=== PATIENT | female | born 1955 | race Caucasian/White ===

== ENCOUNTER 2020-06-15 10:28 | Emergency (ER) | payer BC, SELFPAY ==
--- NOTE | ~2020-06-15 | XR_ITS ---
EXAMINATION: XR chest 2V DATE: 06/15/2020 12:40 INDICATION: Chest pain. TECHNIQUE: Frontal and lateral views of the chest were obtained. COMPARISON: Chest 2 views 04/03/2018 FINDINGS: There is mild scarring at the lung apices. No pleural effusion or pneumothorax. The heart s ize is normal. There are bilateral breast implants. Surgical clips in the right upper quadrant are attila bush from cholecystectomy. IMPRESSION: 1. Mild scarring at the lung apices. Reviewed, dictated and finalized at location A.
--- NOTE | 2020-06-15 10:29 | ECG_ITS ---
Measurements Intervals [place] Rate: 69 P: 44 FL: 147 QRS: 29 QRSD: 85 T: 30 QT: 384 QTc: 414 Interpretive Statements SINUS RHYTHM WITH SINUS ARRHYTHMIA BORDERLINE ST ABNORMALITY- ANTEROLATERAL LEADS BASELINE ARTIFACT- I, III BORDERLINE ECG Electronically Signed On 06-16-2020 7:44:00 CDT by Scot Kern D.O.
[2020-06-15 10:43] VITALS: BP 135/67; PULSE 70; RESP 18; TEMP 36.2; O2SAT 100
[2020-06-15 10:59] LABS: Basophils Percent Auto 0.9 % (0.2-1.2); Eosinophils Absolute Auto 0.1 K/mm3 (0-0.3); Eosinophils Percent Auto 2.2 % (0-4.4); Hematocrit 38.8 % (37.0-47.0); Hemoglobin 13.2 g/dL (12.0-15.0); Immature Granulocyte Absolute 0.02 K/mm3 (0.00-0.031); Immature Granulocyte Percent A 0.4 % (0-0.5); Lymphocytes Absolute Auto 1.29 K/mm3 (0.9-3.2); Lymphocytes Percent Auto 28.4 % (18.3-44.2); Mean Corpuscular Hemoglobin 31.4 pg (26-34); Mean Corpuscular Volume 92.4 fl (80-100); Mean Platelet Volume 9.7 fl (7.4-10.4); Monocytes Absolute Auto 0.2 K/mm3 (0.1-0.6); Monocytes Percent Auto 5.1 % (2.6-8.5); Neutrophils Absolute Auto 2.9 K/mm3 (1.3-6.7); Platelet Count Result 209 k/mm3 (150-375); Red Cell Distribution Width 12.9 % (11.5-14.5); White Blood Count 4.6 K/mm3 (4.5-10.0)
[2020-06-15 11:10] LABS: Anion Gap 7 mmol/L (8-16); Blood Urea Nitrogen 10 mg/dL (7-17); Calcium 9.4 mg/dL (8.4-10.2); Carbon Dioxide 27 mmol/L (22-30); Chloride 105 mmol/L (98-107); Estimated CRCL calculation 79 ml/min; Estimated Glomerular Filt Rate > 60; Glucose 162 mg/dL (65-105); Potassium 3.9 mmol/L (3.4-5.0); Sodium 139 mmol/L (137-145)
[2020-06-15 11:11] LABS: Partial Thromboplastin Time 22.6 SECONDS (22.3-36.8)
[2020-06-15 11:22] LABS: Troponin I < 0.012 ng/mL (0.000-0.034)
[2020-06-15 13:33] VITALS: BP 152/74; PULSE 82; RESP 20; O2SAT 100
--- NOTE | 2020-06-15 14:04 | ED.CHESTPAIN ---
HPI - Chest Pain General Chief Complaint: Chest Pain Stated Complaint: CP Time Seen by Provider: 06/15/20 13:39 Source: patient and family Mode of arrival: ambulatory Limitations: no limitations History of Present Illness HPI narrative: 65 years old white female presented a day with left chest pain started 30 minutes prior to arrival to the emergency room. Patient was in a standing position doing physical work suddenly developed sharp stabbing pain at the left chest lasted for about 5 minutes, get better with deep breath, denies anything makes it worse. Pain was 10 out of 10, currently 0 out of 10. Patient had similar symptoms roughly 3 years ago secondary to anxiety. Patient denies any fever, chills, nausea, vomiting, shortness of breath, back pain or abdominal. Patient been doing physical job for the last 3 years. Denies anything new today. Patient reports 1 of her friends is dying of cancer in the last few days and she is very sad about that. Currently patient denying any symptoms. Related Data Allergies Allergy/AdvReac Type Severity Reaction Status Date / Time No Known Allergies Allergy Verified 06/15/20 13:30 Review of Systems Review of Systems: Narrative: CONSTITUTIONAL: Denies fever, chills, or sweats. EYES: Denies visual changes, redness, or discharge. ENT: Denies rhinorrhea, congestion, sore throat, or otalgia. CARDIOVASCULAR: Denies chest pain, palpitations, or edema. RESPIRATORY: Denies cough or dyspnea. GASTROINTESTINAL: Denies abdominal pain, nausea, vomiting, or diarrhea. GENITOURINARY: Denies dysuria or hematuria. SKIN: Denies rash or itching. MUSCULOSKELETAL: Denies back pain, joint pain, or myalgia. NEUROLOGIC: Denies headache, numbness, or weakness. PSYCHIATRIC: Denies anxiety or depression. [facility] Past Medical History Medical History Anxiety BMI 28.0-28.9,adult Breast cancer screening Colon cancer screening Encounter for wellness examination GERD (gastroesophageal reflux disease) Hyperlipidemia Obstructive Sleep Apnea-Hypopnea Syndrome Osteoporosis screening Stiffness of left shoulder joint Type 2 diabetes mellitus Vitamin D deficiency Surgical History Surgical History History of cholecystectomy Family History Family History Sibling Diabetes mellitus Family history of cardiovascular disease Mother Diabetes mellitus Acute myocardial infarction Father Family history of lung cancer Social History Social History Smoking status: Never smoker Second hand tobacco smoke exposure: No Alcohol intake: current Substance use: never Substance use type: does not use Gender identity (if verbalized by the patient): Female Exam Narrative: Exam Narrative: General appearance: Well-developed, well-nourished Skin: Normal color Head: Normocephalic, nontraumatic Eyes: Clear conjunctiva ENT: Oropharynx normal, ears normal, nose normal Neck: Supple, nontender Chest and respiratory: Airway patent, no respiratory distress, no accessory muscle use, breast augmentation Heart: Regular rate/rhythm Abdomen: Soft, nontender, no organomegaly, quiet bowel sounds Vascular: Normal peripheral pulses, normal capillary refill. Musculoskeletal: Normal range of motion, nontender back Neurologic: Alert and oriented ?3, [employer] is normal as tested, no gross motor deficit Course Course Emergency Course: Stable Vital Signs Vital signs: Vital Signs Temperature 36.2 C L 06/15/20 10:43 Pulse Rate 70 06/15/20 10:43 Respirat
[2020-06-15 14:49] VITALS: BP 133/71; PULSE 80; RESP 16; O2SAT 100
[2020-06-15 15:44] VITALS: BP 141/89; PULSE 80; RESP 16; O2SAT 97
[2020-06-15 16:25] LABS: Troponin I < 0.012 ng/mL (0.000-0.034)
[2020-06-15 17:17] VITALS: BP 141/89; PULSE 87; RESP 16; TEMP 36.8; O2SAT 99
[2020-06-15 17:45] LABS: D Dimer 0.27 ug/mL (<0.48)
== END 2020-06-15 17:20 | disposition home or self-care (01) ==
PROVIDERS: Emergency Medicine; Emergency Provider Emergency Medicine; PCP Family Medicine
DX: R07.9 Chest pain, unspecified (principal); K21.9 Gastro-esophageal reflux disease without esophagitis; E78.5 Hyperlipidemia, unspecified; G47.30 Sleep apnea, unspecified; E11.9 Type 2 diabetes mellitus without complications
CPT/HCPCS: 36415; 71046; 80048; 84484; 85025; 85380; 85610; 85730; 93005; 99284

== ENCOUNTER 2020-07-22 02:52 | Outpatient (CLI) | payer BC, SELFPAY ==
[2020-07-22 18:02] LABS: SARS-CoV-2 RNA PCR Negative
== END 2020-07-22 02:53 | disposition home or self-care (01) ==
LOC: ANHCOVIDDT 02:53
PROVIDERS: PCP Family Medicine; Visit Provider Internal Medicine Gastroenterology
DX: Z01.812 Encounter for preprocedural laboratory examination (principal); Z20.828 Contact with and (suspected) exposure to other viral communicable diseases
CPT/HCPCS: 87635; C9803; U0003

== ENCOUNTER 2020-07-25 01:43 | Day surgery (SDC) | payer BC, SELFPAY ==
[2020-07-19 13:08] VITALS: BMI 28.0
[2020-07-25 06:53] LABS: Glucose Point of Care 133 (65-105)
[2020-07-25] MEDS: LACTATED RINGERS 1,000 ML 150 ML IV CONT (06:57)
[2020-07-25 06:59] VITALS: BP 133/66; PULSE 86; RESP 14; TEMP 36.2; O2SAT 98; BMI 28.0
--- NOTE | 2020-07-25 07:16 | WPDANESEPPF ---
Anes - Initial Pre Proc Eval Procedure: Operation Date: 07/25/20 08:00 Proposed Procedures p Screening Colonoscopy - Thomas Sanchez MD Date/Time: 07/25/20 07:16 Surgeon: Thomas Sanchez MD Pre Op Diagnosis: Neoplasm Screening Patient Data Age: 65 Gender: F Height: 1.63 m Weight: 74 kg Last Vital Signs Temp 36.2 C L 07/25/20 06:59 Pulse 86 07/25/20 06:59 Resp 14 07/25/20 06:59 BP 133/66 07/25/20 06:59 Pulse Ox 98 07/25/20 06:59 Allergies Allergy/AdvReac Type Severity Reaction Status Date / Time No Known Allergies Allergy Verified 07/25/20 06:45 Home Medications Medication Instructions Recorded Confirmed Type sertraline 50 mg tablet 50 mg PO DAILY #90 tablet 10/12/19 07/19/20 Rx metformin 500 mg tablet,extended 1,000 mg PO QPM #180 tablet 01/04/20 07/19/20 Rx release 24 hr atorvastatin 20 mg tablet 20 mg PO DAILY #90 tablet 06/02/20 07/19/20 Rx glimepiride 2 mg tablet 2 mg PO QAM #30 tablet 06/02/20 07/19/20 Rx omeprazole 20 mg PO DAILY PRN 07/19/20 07/19/20 History vitamins A,C,O-hppv-jinqjz 2 tablet PO BID 07/19/20 07/19/20 History [PreserVision AREDS] Laboratory Tests 07/25/20 06:51 POC Capillary Glucose 133 mg/dl H mg/dl (65-105) Patient hx anesthesia problems: none Family hx anesthesia problems: none PMFSH Past Medical History Medical History (Updated 06/16/20 @ 00:00 by Background Daemon) Anxiety BMI 28.0-28.9,adult Breast cancer screening Colon cancer screening Encounter for wellness examination GERD (gastroesophageal reflux disease) Hyperlipidemia Obstructive Sleep Apnea-Hypopnea Syndrome Osteoporosis screening Stiffness of left shoulder joint Type 2 diabetes mellitus Vitamin D deficiency Surgical History Surgical History History of cholecystectomy Family History Family History Sibling Diabetes mellitus Family history of cardiovascular disease Mother Diabetes mellitus Acute myocardial infarction Father Family history of lung cancer Social History Social History Smoking status: Never smoker Second hand tobacco smoke exposure: No Alcohol intake: current Drinks per week: 0 Alcohol use details: MAY A COUPLE PER MONTH Substance use: never Substance use type: does not use Living arrangements: alone Gender identity (if verbalized by the patient): Female Spiritual care concerns: No Anes - Eval Final PreProcedure Day of Procedure 07/25/20 07:16 Patient weight: overweight Heart: regular rate and rhythm Lungs: clear to auscultation and normal air movement Airway: Mallampati scale class II Neurological: alert and oriented Last oral intake: >/= 8 hours ASA classification: III Emergent: no Anesthetic plan: proceed Anesthesia type and monitoring: general GIVS Informed Consent: The patient's anesthetic plan and its attendant risks and benefits were discussed with the patient/family/POA. Questions were solicited and answers provided to the satisfaction of the patient/family/POA.
--- NOTE | 2020-07-25 08:06 | WPDGICN ---
Assessment and Plan Assessment and plan (1) Encounter for screening colonoscopy: Code(s): Z12.11 - Encounter for screening for malignant neoplasm of colon Status: Acute Assessment and Plan: Patient appears to be at normal risk for colon polyps. Screening colonoscopy advised today. Further recommendations after endoscopy. GI Consult Note Consult date/time: 07/25/20 08:06 HPI: Claudette Mas is a 65 year old female seen in evaluation at the request of Dr. Lisa Cano. Patient presents for neoplasia screening. Patient's current weight appetite bowel movement are normal. She denies abdominal pain. She has had no blood in her stools. Family history is noncontributory. Review of Systems Review of Systems: All systems reviewed & are unremarkable except as noted in HPI and below PMFSH Past Medical History Medical History (Updated 07/25/20 @ 08:07 by Thomas Sanchez MD) Anxiety BMI 28.0-28.9,adult Breast cancer screening Colon cancer screening Encounter for wellness examination GERD (gastroesophageal reflux disease) Hyperlipidemia Obstructive Sleep Apnea-Hypopnea Syndrome Osteoporosis screening Stiffness of left shoulder joint Type 2 diabetes mellitus Vitamin D deficiency Surgical History Surgical History History of cholecystectomy Family History Family History Sibling Diabetes mellitus Family history of cardiovascular disease Mother Diabetes mellitus Acute myocardial infarction Father Family history of lung cancer Social History Social History Smoking status: Never smoker Second hand tobacco smoke exposure: No Alcohol intake: current Drinks per week: 0 Alcohol use details: MAY A COUPLE PER MONTH Substance use: never Substance use type: does not use Living arrangements: alone Gender identity (if verbalized by the patient): Female Spiritual care concerns: No Meds Home Medications and Allergies Home Medications Medication Instructions Recorded Confirmed Type sertraline 50 mg tablet 50 mg PO DAILY #90 tablet 10/12/19 07/19/20 Rx metformin 500 mg tablet,extended 1,000 mg PO QPM #180 tablet 01/04/20 07/19/20 Rx release 24 hr atorvastatin 20 mg tablet 20 mg PO DAILY #90 tablet 06/02/20 07/19/20 Rx glimepiride 2 mg tablet 2 mg PO QAM #30 tablet 06/02/20 07/19/20 Rx omeprazole 20 mg PO DAILY PRN 07/19/20 07/19/20 History vitamins A,C,A-iojv-xbmmbb 2 tablet PO BID 07/19/20 07/19/20 History [PreserVision AREDS] Allergies Allergy/AdvReac Type Severity Reaction Status Date / Time No Known Allergies Allergy Verified 07/25/20 06:45 Vital Signs Vital Signs - 24 hr 07/25/20 06:59 Temperature 97.2 F L Pulse Rate 86 Respiratory Rate 14 Blood Pressure 133/66 Pulse Oximetry 98 Exam Narrative: Exam Narrative: Physical exam reveals patient to be alert. Vital signs stable. HEENT exam unremarkable. Lungs are clear to auscultation and percussion. Heart is without murmur or extra sounds. Abdominal exam bowel sounds are present soft nontender with no hepatosplenomegaly. Digital external rectal exam is normal.
[2020-07-25 08:31] VITALS: BP 104/57; PULSE 78; RESP 17; O2SAT 96
[2020-07-25 08:41] VITALS: BP 118/61; PULSE 75; RESP 17; O2SAT 99
[2020-07-25 08:50] VITALS: BP 124/75; PULSE 82; RESP 23; O2SAT 100
== END 2020-07-25 08:58 | disposition home or self-care (01) ==
PROVIDERS: PCP Family Medicine; Visit Provider Internal Medicine Gastroenterology
PROC: 0DJD8ZZ Inspection of Lower Intestinal Tract, Via Natural or Artificial Opening Endoscopic (ICD-10-PCS; CPT 45378; principal; 2020-07-25 08:00)
DX: Z12.11 Encounter for screening for malignant neoplasm of colon (principal); K64.8 Other hemorrhoids; K57.30 Diverticulosis of large intestine without perforation or abscess without bleeding; K21.9 Gastro-esophageal reflux disease without esophagitis; E78.5 Hyperlipidemia, unspecified; G47.33 Obstructive sleep apnea (adult) (pediatric); E11.9 Type 2 diabetes mellitus without complications; E55.9 Vitamin D deficiency, unspecified; Z79.84 Long term (current) use of oral hypoglycemic drugs
CPT/HCPCS: 45378; J2704; J7120

== ENCOUNTER 2020-08-17 15:30 | Outpatient (RCR) | payer BC, SELFPAY ==
--- NOTE | 2020-07-13 14:37 | PTOPEVAL ---
Thank you for referring Claudette Mas to [facility].? The patient is scheduled to be seen for therapy? 2 x/week for 6 weeks. Please review, sign, date and return this plan of care OTTONIEL. I agree with and certify that the following plan of care is medically necessary. Referring Physician Date Attending Provider: Vladimir Pollack PA-C Referring Provider: DemiPT Outpatient Evaluation Start: 07/13/20 13:22 Freq: Status: Active Protocol: Document 07/13/20 13:25 CAP (Rec: 07/13/20 14:10 CAP [id number]) Therapy Assessment Status Assessment Status Assessment Status Evaluation Outpatient Past Medical History Past Medical History Source of Past Medical History Patient,Recalled from Previous Visit, Confirmed with Patient /Family Cardiovascular History Hx Hypercholesterolemia Yes Hx Hypertension Yes Respiratory History Hx Sleep Apnea Yes Gastrointestinal History Hx Cholecystectomy Yes Genitourinary History Hx Kidney Stones Yes Endocrine History Hx Diabetes Yes Psychosocial History Hx Anxiety Yes Evaluation Information Problem Diagnosis left shoulder pain Onset 1 yr Cause fall x 2 Subjective Information She did not have x-rays on her Query Text:As Reported By Patient/ left UE after the falls. She Family reports limitations with reaching behind her back, but not overhead. Increased pain with sleeping on left shoulder. She does not carry objects with Left UE. She denies any problem with work related task or IADL's at home. She denies problems with yard work. She does not perform fitness or walking program. Diagnostic Tests X-Rays For This Problem No Pain Assessment Timing of Pain Assessment Timing of Pain Assessment Assessment Pain Scale Pain Scale Used Numeric (1 - 10) Self Report Pain Assessment Left Shoulder(s) Reported Pain Level 0 Pain Description Aching Pain Frequency Chronic,Intermittent Lowest Pain Intensity 0 Greatest Pain Intensity 4 Pain Aggravating Factors Other Pain Aggravating Factors Other Pain Aggravating Factors reaching behind Pain Behaviors Relaxed Pain Score Pain Score 0: Self Report Interventio
--- NOTE | 2020-08-03 14:07 | PCPTNOTE ---
Patient did not show up for scheduled appointment this date; called and left voicemail for re-eval on August 10 @ 1:30pm.
--- NOTE | 2020-08-10 14:23 | PTOPEVAL ---
Thank you for referring Claudette Mas to [facility].? The patient is scheduled to be seen for therapy? 2 x/week for 3 weeks. Please review, sign, date and return this plan of care OTTONIEL. I agree with and certify that the following plan of care is medically necessary. Referring Physician Date Attending Provider: Vladimir Pollack PA-C Referring Provider: DemiPT Outpatient Evaluation Start: 07/13/20 13:22 Freq: Status: Active Protocol: Document 08/10/20 13:23 PAULA (Rec: 08/10/20 14:08 PAULA [email or web address]) Therapy Assessment Status Assessment Status Assessment Status Re-evaluation/Progress Note Outpatient Past Medical History Past Medical History Source of Past Medical History Patient,Recalled from Previous Visit, Confirmed with Patient /Family Neurological History Hx Neurological Disorders No Significant History Cardiovascular History Hx Hypercholesterolemia Yes Respiratory History Hx Sleep Apnea Yes: DOES NOT WEAR CPAP Gastrointestinal History Hx Cholecystectomy Yes: 2006 Genitourinary History Hx Kidney Stones Yes: X2 Musculoskeletal History Hx Spinal Surgery Yes: CERVICAL FUSION Hematological History Hx Hematological Disorders No Significant History Endocrine History Hx Diabetes Yes: TYPE II - ORAL MEDS HEENT History Hx HEENT Disorders No Significant History Integumentary History Hx Skin Disorders No Significant History Reproductive History Hx Post Menopausal Yes Psychosocial History Hx Anxiety Yes Pain History History of Any Previous or Ongoing No Significant History Instance of Pain Anesthesia History Hx Anesthesia Reactions No Significant History Other History Hx Implanted Device Yes: BREAST IMPLANTS Evaluation Information Problem Diagnosis left shoulder pain Onset 1 yr Cause fall x 2 Additional Evaluation Detail She did not have x-rays on her left UE after the falls. Subjective Information She is able to reach behind Query Text:As Reported By Patient/ her better, but still has pain Family if she performs the motion quickly. She cont to have pain with sleeping on left shoulder. She is able to carry objects with Left UE without limitations. She denies any problem with work related task or IADL's at home. She denies problems with ya
--- NOTE | 2020-08-31 08:02 | PCPTNOTE ---
Patient called & cancelled scheduled appointments from - due to getting COVID test for procedure then needed to self quarantine. Cancelled appointment - due to stent put in on Saturday with be here for re-eval on the .
--- NOTE | 2020-09-07 10:23 | PCPTNOTE ---
Patient called & cancelled scheduled appointment this date due to COVID testing. Did not reschedule her re-eval. Will hold chart open for 2 wks.
--- NOTE | 2020-09-21 12:42 | PCPTNOTE ---
Admitting Provider: Attending Provider: Vladimir Pollack PA-C Patient:Claudette Mas Date of :1955 Discharge Note Patient has not returned for any further treatments since 08/17/2020, therefore she will be discharged at this time. Patient?s initial visit was on 07/13/2020 13:15 and she had a total of 7 visits. The goals have been not met. Thank you for referring this patient to [facility]. Please review, sign, date and return this discharge summary OTTONIEL. I have been updated about the patient's current status and I agree with discharge from the above service at this time. Referring Physician Date
== END 2020-09-21 15:37 | disposition home or self-care (01) ==
LOC: ANHPT 15:30
PROVIDERS: PCP Family Medicine; Visit Provider Physician Assistant
DX: M25.612 Stiffness of left shoulder, not elsewhere classified (principal)
CPT/HCPCS: 97110; 97140; 97162

== ENCOUNTER 2020-08-26 02:07 | Outpatient (CLI) | payer BC, SELFPAY ==
[2020-08-26 19:10] LABS: SARS-CoV-2 RNA PCR Negative
== END 2020-08-26 02:08 | disposition home or self-care (01) ==
LOC: ANHCOVIDDT 02:07
PROVIDERS: PCP Family Medicine; Visit Provider Specialist
DX: Z01.812 Encounter for preprocedural laboratory examination (principal); Z20.828 Contact with and (suspected) exposure to other viral communicable diseases
CPT/HCPCS: 87635; C9803; U0003

== ENCOUNTER 2020-08-29 11:19 | Day surgery (SDC) | payer BC, SELFPAY ==
[2020-08-29] VITALS (13 sets, daily range): BP systolic 128–148; BP diastolic 63–88; PULSE 68–79; RESP 14–20; TEMP 36.6; O2SAT 95–100; BMI 28.3
[2020-08-29 12:18] LABS: Eosinophils Absolute Auto 0.1 K/mm3 (0-0.3); Eosinophils Percent Auto 2.9 % (0-4.4); Hematocrit 36.2 % (37.0-47.0); Hemoglobin 12.5 g/dL (12.0-15.0); Immature Granulocyte Absolute 0.03 K/mm3 (0.00-0.031); Immature Granulocyte Percent A 0.7 % (0-0.5); Lymphocytes Absolute Auto 1.35 K/mm3 (0.9-3.2); Lymphocytes Percent Auto 32.8 % (18.3-44.2); Mean Corpuscular HGB Conc 34.5 g/dl (32-36); Mean Corpuscular Hemoglobin 31.5 pg (26-34); Mean Corpuscular Volume 91.2 fl (80-100); Mean Platelet Volume 9.6 fl (7.4-10.4); Monocytes Absolute Auto 0.3 K/mm3 (0.1-0.6); Neutrophils Absolute Auto 2.3 K/mm3 (1.3-6.7); Neutrophils Percent Auto 55.6 % (45.5-73.1); Platelet Count Result 186 k/mm3 (150-375); Red Blood Count 3.97 M/mm3 (4.2-5.4); Red Cell Distribution Width 12.4 % (11.5-14.5); White Blood Count 4.1 K/mm3 (4.5-10.0)
[2020-08-29 12:35] LABS: Anion Gap 6 mmol/L (8-16); Blood Urea Nitrogen 9 mg/dL (7-17); Calcium 8.9 mg/dL (8.4-10.2); Carbon Dioxide 26 mmol/L (22-30); Chloride 107 mmol/L (98-107); Estimated Glomerular Filt Rate > 60; Glucose 139 mg/dL (65-105); Potassium 3.9 mmol/L (3.4-5.0); Sodium 139 mmol/L (137-145)
--- NOTE | 2020-08-29 13:20 | PM.IMHP ---
H&P: HPI History of Present Illness Date/Time: 08/29/20 13:20 65 years old lady with history of hypertension dyslipidemia, and diabetes mellitus with symptoms of chest pain underwent stress test which was abnormal with inferior ischemia she did measure the hospital for elective cardiac catheterization for definitive diagnosis of coronary disease Chief complaint: Chest Pain Narrative: Claudette Mas is a 65 year old female [facility] Past Medical History Medical History (Updated 08/29/20 @ 13:22 by Juan Carreno MD) Anxiety BMI 28.0-28.9,adult Breast cancer screening Colon cancer screening Encounter for wellness examination GERD (gastroesophageal reflux disease) Hyperlipidemia Obstructive Sleep Apnea-Hypopnea Syndrome Osteoporosis screening Stiffness of left shoulder joint Type 2 diabetes mellitus Vitamin D deficiency Surgical History Surgical History History of cholecystectomy Family History Family History Sibling Diabetes mellitus Family history of cardiovascular disease Mother Diabetes mellitus Acute myocardial infarction Father Family history of lung cancer Social History Social History Smoking status: Never smoker Second hand tobacco smoke exposure: No Alcohol intake: current Drinks per week: 0 Substance use: never Substance use type: does not use Gender identity (if verbalized by the patient): Female Spiritual care concerns: No Meds Home Medications and Allergies Home Medications Medication Instructions Recorded Confirmed Type sertraline 50 mg tablet 50 mg PO DAILY #90 tablet 10/12/19 07/19/20 Rx metformin 500 mg tablet,extended 1,000 mg PO QPM #180 tablet 01/04/20 07/19/20 Rx release 24 hr atorvastatin 20 mg tablet 20 mg PO DAILY #90 tablet 06/02/20 07/19/20 Rx omeprazole 20 mg PO DAILY PRN 07/19/20 07/19/20 History vitamins A,C,G-qmor-cxxtje 2 tablet PO BID 07/19/20 07/19/20 History [PreserVision AREDS] glimepiride 2 mg tablet 2 mg PO QAM #30 tablet 08/22/20 Rx Allergies Allergy/AdvReac Type Severity Reaction Status Date / Time No Known Allergies Allergy Verified 08/26/20 15:54 Exam Narrative: Exam Narrative: Awake alert oriented x3 not in acute distress Neck is supple no obvious JVD, no carotid bruit Chest: Good air entry bilaterally, lungs are clear to auscultation and percussion bilaterally Cardiovascular: Regular rate and rhythm, 2/6 systolic murmur noted left sternal border Abdomen: Soft nontender bowel sounds positive Extremities: No edema has good pulses distally bilaterally H&P: Results Labs Labs: Short CBC 08/29/20 Range/Units 11:46 WBC 4.1 L (4.5-10.0) K/mm3 Hgb 12.5 (12.0-15.0) g/dL Hct 36.2 L (37.0-47.0) % Plt Count 186 (150-375) k/mm3 BMP 08/29/20 11:46 Sodium 139 Potassium 3.9 Chloride 107 Carbon Dioxide 26 BUN 9 Creatinine 0.50 L Glucose 139 H Calcium 8.9 Assessment and Plan Assessment and plan (1) Type 2 diabetes mellitus: Qualifiers: Diabetes mellitus prison insulin use: without prison use Diabetes mellitus complication status: without complication Qualified Code(s): E11.9 - Type 2 diabetes mellitus without complications Code(s): E11.9 - Type 2 diabetes mellitus without complications Status: Acute (2) Hyperlipidemia: Qualifiers: Hyperlipidemia type: mixed hyperlipidemia Qualified Code(s): E78.2 - Mixed hyperlipidemia Code(s): E78.5 - Hyperlipidemia, unspecified Status: Acute (3) Angina pectoris: Code(s): I20.9 - Angina pectoris, unspecified Status: Acute Assessment and Plan: with abnormal stress test. will plan cardiac catheterization. The procedure was discussed with the patient, risks, benefits, and alternative diagnostic measure was explai
--- NOTE | 2020-08-29 13:23 | WPDMODSED ---
Moderate Sedation Note-Pt Data Patient Data Allergies Allergy/AdvReac Type Severity Reaction Status Date / Time No Known Allergies Allergy Verified 08/26/20 15:54 Home Medications Medication Instructions Recorded Confirmed Type sertraline 50 mg tablet 50 mg PO DAILY #90 tablet 10/12/19 07/19/20 Rx metformin 500 mg tablet,extended 1,000 mg PO QPM #180 tablet 01/04/20 07/19/20 Rx release 24 hr atorvastatin 20 mg tablet 20 mg PO DAILY #90 tablet 06/02/20 07/19/20 Rx omeprazole 20 mg PO DAILY PRN 07/19/20 07/19/20 History vitamins A,C,D-adcr-pcakww 2 tablet PO BID 07/19/20 07/19/20 History [PreserVision AREDS] glimepiride 2 mg tablet 2 mg PO QAM #30 tablet 08/22/20 Rx Current Medications: Active Medications Sodium Chloride (Normal Saline Iv) 500 mls @ 100 mls/hr IV CONT .Q5H ABBY Sedation/Anesthesia: No previous sedation/anesthesia problems (including family history). [facility] Past Medical History Medical History (Updated 08/29/20 @ 13:22 by Juan Carreno MD) Anxiety BMI 28.0-28.9,adult Breast cancer screening Colon cancer screening Encounter for wellness examination GERD (gastroesophageal reflux disease) Hyperlipidemia Obstructive Sleep Apnea-Hypopnea Syndrome Osteoporosis screening Stiffness of left shoulder joint Type 2 diabetes mellitus Vitamin D deficiency Surgical History Surgical History History of cholecystectomy Family History Family History Sibling Diabetes mellitus Family history of cardiovascular disease Mother Diabetes mellitus Acute myocardial infarction Father Family history of lung cancer Social History Social History Smoking status: Never smoker Second hand tobacco smoke exposure: No Alcohol intake: current Drinks per week: 0 Substance use: never Substance use type: does not use Gender identity (if verbalized by the patient): Female Spiritual care concerns: No Mod Sed Physical Exam Physical Exam Pre Procedural Exam: Normal: Appearance, Eyes, Ears, Nose, Neck, Throat, Airway, Lungs, Heart Size, Heart Rate, Heart Rhythm, Neuro Exam, Abdomen, Liver, Kidneys, Spleen, Breasts, Genitalia, Extremities and Skin Hours since solid foods: 8 Hours since liquid intake: 8 Internal Medicine - PN: Obj Da Meds/Results Medications: Active Medications Generic Name Dose Route Start Last Admin Trade Name Moy PRN Reason Stop Dose Admin Sodium Chloride 500 mls @ 100 mls/hr 08/29/20 03:00 Normal Saline Iv IV CONT .Q5H ABBY Labs CBC & Chem 7: 08/29/20 11:46 08/29/20 11:46 Labs: Laboratory Results - last 24 hr 08/29/20 08/29/20 11:46 11:46 WBC 4.1 L RBC 3.97 L Hgb 12.5 Hct 36.2 L MCV 91.2 MCH 31.5 MCHC 34.5 RDW 12.4 Plt Count 186 MPV 9.6 Immature Gran % (Auto) 0.7 H Neut % (Auto) 55.6 Lymph % (Auto) 32.8 [place] % (Auto) 7.0 Eos % (Auto) 2.9 Baso % (Auto) 1.0 Lymph # (Auto) 1.35 [place] # (Auto) 0.3 Eos # (Auto) 0.1 Baso # (Auto) 0.0 Abs Immat Gran (auto) 0.03 Absolute Neuts (auto) 2.3 Absolute Nucleated RBC 0.0 Nucleated RBC % 0.0 Sodium 139 Potassium 3.9 Chloride 107 Carbon Dioxide 26 Anion Gap 6 L BUN 9 Creatinine 0.50 L Estim Creat Clear Calc Not Reportable Estimated GFR > 60 Glucose 139 H Calcium 8.9 ASA Classification/Sedation ASA Classification/Sedation ASA Class: II Risks: Risks, benefits and alternatives explained and patient/family accepted plan for sedation. Patient re-evaluated immediately prior to sedation.
--- NOTE | 2020-08-29 13:38 | WPDCARDPROC ---
Cardiac Cath Procedure Note Date of procedure:: 08/29/20 Performing physician:: Juan Carreno MD Procedure: 1. Left heart catheterization, selective coronary angiogram. 2. Left ventricular angiogram. 3. Conscious sedation. Jacquard Loom Card Changer: Dr. Juan Carreno Complications: None. Sedation: Conscious sedation, local anesthesia, using 1 mg of Versed said, 25 mcg of fentanyl, and using 1% lidocaine for local anesthesia. starting time is 1:28 p.m. ending time is 1:36 p.m. History: 65 years old lady with history of diabetes mellitus dyslipidemia seen because of chest pain underwent stress test showed mild inferior ischemia with to the logging rafter laborer for elective cardiac catheterization for definitive diagnosis of coronary disease Technique: After informed consent was obtained from patient, was brought to the logging rafter laborer, put in the logging rafter laborer table, prepped and draped in usual sterile fashion. Five Andorran sheath was inserted into the right common femoral artery, through the sheath 5 Andorran JL4 catheter inserted, advanced to the left coronary artery, left coronary artery angiogram was obtained. The catheter was exchanged over guidewire into a 5 Andorran JR4 catheter, advanced to the right coronary artery, right coronary artery angiogram was obtained. The catheter then was exchanged over guidewire into this 5 Andorran pigtail catheter, advanced to left ventricle, left ventricular angiogram was obtained. The catheter then was pulled, the sheath was pulled applying manual pressure for arterial hemostasis. Patient tolerated the procedure no complication, taken from the logging rafter laborer to his room in stable condition stable vital signs. Hemodynamics: aortic pressure 145/75 . LV pressure 144/04 with LVEDP of 16 mmHg Angiographic findings: Left main: Medium size artery no significant disease or stenosis. very short vessel Lad medium size artery showed no significant disease or stenosis Left circumflex artery, medium size artery, no significant disease or stenosis. RCA: Dominant vessel, showed distal PLV and PDA [id number] disease LV: Normal size left ventricle with normal left ventricular systolic function. Summary: Mild coronary artery disease, normal left ventricular systolic function. Recommendation: Maximum medical treatment. Risk factor modification
--- NOTE | 2020-08-29 18:35 | SUR.PHASEII ---
1830-pt given D/C orders and instructions. Questions answered and verbalized understanding. AOx4. Groin soft and non-tender, no evidence of bleeding or hematoma noted. Strong right pedal pulse noted. Taken via wheelchair to waiting vehicle. No distress noted or verbalized at time of departure.
== END 2020-08-29 18:30 | disposition home or self-care (01) ==
PROVIDERS: PCP Family Medicine; Visit Provider Specialist
PROC: 4A023N7 Measurement of Cardiac Sampling and Pressure, Left Heart, Percutaneous Approach (ICD-10-PCS; CPT 93452; principal; 2020-08-29 13:00)
DX: I25.10 Atherosclerotic heart disease of native coronary artery without angina pectoris (principal); R94.39 Abnormal result of other cardiovascular function study; R07.9 Chest pain, unspecified; E78.5 Hyperlipidemia, unspecified; E11.9 Type 2 diabetes mellitus without complications; K21.9 Gastro-esophageal reflux disease without esophagitis; G47.33 Obstructive sleep apnea (adult) (pediatric); E55.9 Vitamin D deficiency, unspecified; F41.9 Anxiety disorder, unspecified; Z79.84 Long term (current) use of oral hypoglycemic drugs
CPT/HCPCS: 36415; 80048; 85025; 93458; C1887; C1894; J0461; J1644; J2250; J3010; J7040

== ENCOUNTER 2022-02-22 09:01 | Outpatient (CLI) | payer BC, SELFPAY ==
--- NOTE | ~2022-02-22 | CT_ITS ---
EXAMINATION: CT abdomen pelvis wo con DATE: 02/22/2022 09:30 INDICATION: Unspecified abdominal pain. TECHNIQUE: Computed tomography (CT) of the abdomen and pelvis was performed without intravenous contr ast. Automated exposure control and iterative reconstruction technique were employed. The dose-length product was 406.11 mGy-cm. COMPARISON: CT abdomen and pelvis 07/22/2010 FINDINGS: The visualized portions of the lung bases demonstrate mild atelectasis. A calcified right l lemuel nodules consistent with old granulomatous disease. There is a 3 mm nodule in right lower lobe, li rachelle benign. There is a stable 6 mm nodule in right middle lobe, likely benign. No pleural effusion. The heart size is normal. No pericardial effusion. Partially visualized are breast implants. There is diffuse hepatic steatosis. Calcifications in the liver and spleen are consistent with old granulomat ous disease. There are changes of cholecystectomy. The pancreas and adrenal glands are normal. There are 2 mm and 1 mm stones in right kidney. Left kidney is normal. There is diverticulosis of the colon without evidence of diverticulitis. There are no dilated loops of bowel. The appendix is normal. The re is an umbilical hernia containing fat. There are no pathologically enlarged lymph nodes. There is no free intraperitoneal fluid. There is severe spondylosis at T8-T9. IMPRESSION: 1. Diffuse hepatic steatosis. 2. Small bilateral nonobstructing kidney stones. 3. Umbilical hernia containing fat. Reviewed, dictated and finalized at location A.
== END 2022-02-22 09:02 | disposition home or self-care (01) ==
PROVIDERS: PCP Family Medicine; Visit Provider Family Medicine
DX: R10.9 Unspecified abdominal pain (principal); N20.0 Calculus of kidney; K42.0 Umbilical hernia with obstruction, without gangrene; R91.1 Solitary pulmonary nodule; K57.30 Diverticulosis of large intestine without perforation or abscess without bleeding; M47.814 Spondylosis without myelopathy or radiculopathy, thoracic region
CPT/HCPCS: 74176

== ENCOUNTER 2022-07-03 10:37 | Outpatient (CLI) | payer BC, SELFPAY ==
--- NOTE | ~2022-07-03 | DEXA_ITS ---
Bone Density Report Name: ZAIDA SLATER Age: 67 Sex: Female Ethnicity: White Date of : 1955 Indication: osteopenia; parental hip fracture;postmenopausal Referring Provider: Shell Rogers Study: Bone densitometry was performed. Exam Date: July 03, 2022 Accession number: [id number] Bone Density: Region BMD T-score Z-score Classification AP Spine (L1-L4) 0.776 -2.5 -0.6 Osteoporosis Femoral Neck (Left) 0.648 -1.8 -0.2 Osteopenia Total Hip (Left) 0.724 -1.8 -0.5 Osteopenia Femoral Neck (Right) 0.685 -1.5 0.1 Osteopenia Total Hip (Right) 0.768 -1.4 -0.1 Osteopenia Total Hip Mean 0.746 -1.6 -0.3 Osteopenia World Health Organization criteria for BMD impression classify patients as: Normal (T-score at or above -1.0), Osteopenia (T-score between -1.0 and -2.5), or Osteoporosis (T-score at or below -2.5). 10-year Fracture Risk: FRAX not reported because: Some T-score for Spine Total or Hip Total or Femoral Neck at or below -2.5 Previous Exams: Region Exam Age BMD T-score BMD Change BMD Change Date g/cm2 vs Baseline vs Previous AP Spine(L1-L4) 07/03/2022 67 0.776 -2.5 -0.072* -0.072* 10/13/2008 53 0.847 -1.8 Total Hip(Left) 07/03/2022 67 0.724 -1.8 -0.048* -0.048* 10/13/2008 53 0.771 -1.4 Total Hip(Right) 07/03/2022 67 0.768 -1.4 -0.025 -0.025 10/13/2008 53 0.793 -1.2 *Denotes significance at 95% confidence level, LSC for AP Spine = 0.022 g/cm2, LSC for Total Hip = 0.027 g/cm2 Clinical Information Provided by Patient: Parent has had a hip fracture Has used the following medications: Vitamin D Patient maximum height was 64 Menopause Age: 51 No regular weight bearing exercise Does not regularly consume dairy products Drinks caffeinated beverages Onset of menses at age 15 Number of children 2 Impression: The patient has osteoporosis, based on the Total Spine T-score. The patient has risk factors, including: parental hip fracture. The BMD for the AP Spine(L1-L4) decreased, changing by -0.072 since the last DXA exam. The BMD for the Total Hip(Left) decreased, changing by -0.048 since the last DXA exam. Discussion: INCREASED RISK OF FRACTURE. BONE DENSITY IS UNDESIRABLY LOW AT ONE OR MORE SKELETAL SITES, CONSISTENT WITH POSTMENOPAUSAL OSTEOPOROSIS. This patient's lowest T-score meets the World Health Organization's (WHO) criteria for osteoporosis at one or more sites (T-score -2.5 or b
== END 2022-07-03 10:38 ==
PROVIDERS: PCP Family Medicine; Visit Provider Physician Assistant
DX: Z78.0 Asymptomatic menopausal state (principal); M85.89 Other specified disorders of bone density and structure, multiple sites; M81.0 Age-related osteoporosis without current pathological fracture
CPT/HCPCS: 77080

== ENCOUNTER 2023-03-01 10:29 | Outpatient (CLI) | payer OTHER, SELFPAY ==
--- NOTE | ~2023-03-01 | XR_ITS ---
EXAMINATION: XR barium swallow DATE: 03/01/2023 11:02 INDICATION: Dysphagia, unspecified. TECHNIQUE: The patient drank thick barium, gas-producing crystals, and thin barium. Fluoroscopy of th e hypopharynx and esophagus was performed. Fluoroscopy exposure time was 0.3 minutes. The total numbe r of images was 439. The dose-area product was 0.888 Gy-cm^2. COMPARISON: CT abdomen and pelvis 02/22/2022 FINDINGS: There is no mass or stricture of the esophagus. Esophageal motility is normal. There is no hiatal hernia. There was no gastroesophageal reflux with provocative maneuvers. IMPRESSION: 1. Normal esophagram. Reviewed, dictated and finalized at location A. IMPRESSION: 1. Normal esophagram.
== END 2023-03-01 10:30 | disposition home or self-care (01) ==
PROVIDERS: PCP Family Medicine; Visit Provider Physician Assistant Medical
DX: R13.10 Dysphagia, unspecified (principal)
CPT/HCPCS: 74220

== ENCOUNTER 2023-03-25 00:46 | Day surgery (SDC) | payer OTHER, SELFPAY ==
[2023-03-07 10:49] VITALS: BMI 29.3
[2023-03-25 09:25] VITALS: BP 152/78; PULSE 92; RESP 18; TEMP 36.5; O2SAT 98; BMI 28.5
[2023-03-25 09:40] LABS: Glucose Point of Care 209 mg/dl (65-105)
[2023-03-25] MEDS: LACTATED RINGERS 1,000 ML 150 ML IV CONT (09:46)
--- NOTE | 2023-03-25 10:01 | PM.HPGS ---
History of Present Illness History of Present Illness Consent: Risks, benefits, and alternatives have been discussed and questions answered. Patient agrees to proceed with procedure. Chief complaint: dysphagia Narrative: Claudette Mas is a 68 year old female Presents for EGD. Patient has had in her mid difficulty swallowing. This occurs infrequently. Does not hurt happen with any specific foods. She has no heartburn or pain. EGD is requested will be performed. Family history noncontributory. Review of Systems Review of Systems: Review of systems noncontributory. COUNTS INCLUDE 234 BEDS AT THE [facility] Past Medical History Medical History Anxiety BMI 28.0-28.9,adult Breast cancer screening Colon cancer screening Encounter for wellness examination Fatigue GERD (gastroesophageal reflux disease) Hyperlipidemia Obstructive Sleep Apnea-Hypopnea Syndrome Osteoporosis screening Stiffness of left shoulder joint Type 2 diabetes mellitus Vitamin D deficiency Surgical History Surgical History History of cholecystectomy Family History Family History Sibling Diabetes mellitus Family history of cardiovascular disease Mother Diabetes mellitus Acute myocardial infarction Father Family history of lung cancer Social History Social History Smoking status: Never smoker Second hand tobacco smoke exposure: No Alcohol intake: current Drinks per week: 0 Alcohol use details: occasional Substance use: never Substance use type: does not use Lack of Transportation: No Lack of Food: Never True Current Housing: I Have Housing Concerned About Future Housing: No Difficulty Paying Gas/Electric Bills: No Difficulty Paying for Meds: No Currently Unemployed: No Education: High School Diploma/GED Difficulty w/ Childcare or Family Care: No Living arrangements: with family Occupation/Education: occupation Gender identity (if verbalized by the patient): Female Sexual Orientation (if Verbalized by the Patient): Straight or Heterosexual Spiritual care concerns: No Agree to blood products: Yes Meds Home Medications and Allergies Home Medications Medication Instructions Recorded Confirmed Type blood-glucose meter #1 elmo 01/30/22 03/25/23 Rx lancets 30 gauge and blood glucose #200 elmo 01/30/22 03/25/23 Rx strips combo pack alendronate 70 mg tablet (Fosamax) 70 mg PO WEEKLY #12 tabs 12/25/22 03/25/23 Rx calcium carbonate 600 mg-vitamin 1 tablet PO .bidmeal 90 days #180 12/25/22 03/25/23 Rx D3 10 mcg (400 unit) tablet tabs sertraline 100 mg tablet 100 mg PO DAILY #90 tabs 12/27/22 03/25/23 Rx atorvastatin 20 mg tablet 20 mg PO DAILY 03/07/23 03/25/23 History glimepiride 2 mg tablet 2 mg PO DAILY 03/07/23 03/25/23 History metformin 500 mg tablet,extended 1,000 mg PO DAILY 03/07/23 03/25/23 History release 24 hr Allergies Allergy/AdvReac Type Severity Reaction Status Date / Time No Known Allergies Allergy Verified 03/25/23 09:33 Vital Signs Vital Signs - 24 hr 03/25/23 09:25 Temperature 97.7 F Pulse Rate 92 Respiratory Rate 18 Blood Pressure 152/78 H Pulse Oximetry 98 Oxygen Delivery Room Air Exam Narrative: Physical exam reveals patient to be alert. Vital signs stable. HEENT exam is unremarkable. Patient is anicteric. Lungs are clear to auscultation and percussion. Heart is without murmur or extra sounds. Abdomen bowel sounds are present soft nontender with no organomegaly. Digital external rectal exam is normal. Assessment and Plan Assessment and plan (1) Dysphagia: Code(s): R13.10 - Dysphagia, unspecified Status: Acute Assessment and Plan: Patient has intermittent difficulty swallowing food sometimes food w
--- NOTE | 2023-03-25 10:09 | WPDANESEPPF ---
Anes - Initial Pre Proc Eval Procedure: Operation Date: 03/25/23 10:30 Proposed Procedures p Esophagogastroduodenoscopy - Thomas Sanchez MD Date/Time: 03/25/23 10:09 Surgeon: Thomas Sanchez MD Pre Op Diagnosis: dysphagia Patient Data Age: 68 Gender: F Height: 1.63 m Weight: 75.5 kg Last Vital Signs Temp 97.7 F 03/25/23 09:25 Pulse 92 03/25/23 09:25 Resp 18 03/25/23 09:25 BP 152/78 H 03/25/23 09:25 Pulse Ox 98 03/25/23 09:25 O2 Del Method Room Air 03/25/23 09:25 Allergies Allergy/AdvReac Type Severity Reaction Status Date / Time No Known Allergies Allergy Verified 03/25/23 09:33 Home Medications Medication Instructions Recorded Confirmed Type blood-glucose meter #1 ea 01/30/22 03/25/23 Rx lancets 30 gauge and blood glucose #200 ea 01/30/22 03/25/23 Rx strips combo pack alendronate 70 mg tablet (Fosamax) 70 mg PO WEEKLY #12 tabs 12/25/22 03/25/23 Rx calcium carbonate 600 mg-vitamin 1 tablet PO .bidmeal 90 days #180 12/25/22 03/25/23 Rx D3 10 mcg (400 unit) tablet tabs sertraline 100 mg tablet 100 mg PO DAILY #90 tabs 12/27/22 03/25/23 Rx atorvastatin 20 mg tablet 20 mg PO DAILY 03/07/23 03/25/23 History glimepiride 2 mg tablet 2 mg PO DAILY 03/07/23 03/25/23 History metformin 500 mg tablet,extended 1,000 mg PO DAILY 03/07/23 03/25/23 History release 24 hr Laboratory Tests 03/25/23 09:38 POC Capillary Glucose 209 H mg/dl (65-105) Patient hx anesthesia problems: none Family hx anesthesia problems: none Results Review: All pre-operative results and documents have been reviewed as part of the pre-operative evaluation. [facility] Past Medical History Medical History Anxiety BMI 28.0-28.9,adult Breast cancer screening Colon cancer screening Encounter for wellness examination Fatigue GERD (gastroesophageal reflux disease) Hyperlipidemia Obstructive Sleep Apnea-Hypopnea Syndrome Osteoporosis screening Stiffness of left shoulder joint Type 2 diabetes mellitus Vitamin D deficiency Surgical History Surgical History History of cholecystectomy Family History Family History Sibling Diabetes mellitus Family history of cardiovascular disease Mother Diabetes mellitus Acute myocardial infarction Father Family history of lung cancer Social History Social History Smoking status: Never smoker Second hand tobacco smoke exposure: No Alcohol intake: current Drinks per week: 0 Alcohol use details: occasional Substance use: never Substance use type: does not use Lack of Transportation: No Lack of Food: Never True Current Housing: I Have Housing Concerned About Future Housing: No Difficulty Paying Gas/Electric Bills: No Difficulty Paying for Meds: No Currently Unemployed: No Education: High School Diploma/GED Difficulty w/ Childcare or Family Care: No Living arrangements: with family Occupation/Education: occupation Gender identity (if verbalized by the patient): Female Sexual Orientation (if Verbalized by the Patient): Straight or Heterosexual Spiritual care concerns: No Agree to blood products: Yes Anes - Eval Final PreProcedure Day of Procedure 03/25/23 10:09 Patient weight: obese Heart: regular rate and rhythm Lungs: clear to auscultation Airway: Mallampati scale class II Neurological: alert and oriented Last oral intake: >/= 8 hours ASA classification: III Emergent: no Anesthetic plan: proceed Anesthesia type and monitoring: general GIVS and standard monitoring Results Review: All pre-operative results and documents have been reviewed as part of the pre-operative evaluation. Informed Consent: The patient's anesthetic plan and its attendant risks and
[2023-03-25] MEDS: BENZOCAINE (*SP) 60 ML SPRAY CAN (HURRICAINE) 1 SPRAY MUCOUS MEM (10:42)
--- NOTE | 2023-03-25 10:44 | SUR.OPER ---
Oral suction used during procedure by CORPORATE ACCOUNTING MANAGER for excess secretions.
[2023-03-25 10:53] VITALS: BP 135/75; PULSE 87; RESP 24; O2SAT 97
[2023-03-25 11:03] VITALS: BP 137/88; PULSE 83; RESP 18; O2SAT 96
[2023-03-25 11:13] VITALS: BP 151/92; PULSE 77; RESP 18; O2SAT 97
== END 2023-03-25 11:25 | disposition home or self-care (01) ==
PROVIDERS: PCP Family Medicine; Visit Provider Internal Medicine Gastroenterology
PROC: 0DJ08ZZ Inspection of Upper Intestinal Tract, Via Natural or Artificial Opening Endoscopic (ICD-10-PCS; CPT 43235; principal; 2023-03-25 10:30)
DX: K22.2 Esophageal obstruction (principal); E11.9 Type 2 diabetes mellitus without complications; K21.9 Gastro-esophageal reflux disease without esophagitis; G47.33 Obstructive sleep apnea (adult) (pediatric); E55.9 Vitamin D deficiency, unspecified; F41.9 Anxiety disorder, unspecified; Z79.84 Long term (current) use of oral hypoglycemic drugs; E66.9 Obesity, unspecified; Z68.28 Body mass index [BMI] 28.0-28.9, adult
CPT/HCPCS: 43450; 43235; 82948; J2704; J7120

== ENCOUNTER 2024-07-24 14:56 | Outpatient (CLI) | payer MEDICARE, SELFPAY ==
--- NOTE | ~2024-07-24 | DEXA_ITS ---
Bone Density Report Name: ZAIDA SLATER Age: 69 Sex: Female Ethnicity: White Date of : 1955 Indication: postmenopausal; screening for osteoporosis; parental hip fracture; Referring Provider: Susannah Bazzi Study: Bone densitometry was performed. Exam Date: July 24, 2024 Accession number: [id number] Bone Density: Region BMD T-score Z-score Classification AP Spine(L1-L4) 0.858 -1.7 0.3 Osteopenia Femoral Neck (Left) 0.627 -2.0 -0.3 Osteopenia Total Hip (Left) 0.736 -1.7 -0.3 Osteopenia Femoral Neck (Right) 0.690 -1.4 0.3 Osteopenia Total Hip (Right) 0.828 -0.9 0.5 Normal Femoral Neck Mean 0.659 -1.7 0.0 Osteopenia Total Hip Mean 0.782 -1.3 0.1 Osteopenia World Health Organization criteria for BMD impression classify patients as: Normal (T-score at or above -1.0), Osteopenia (T-score between -1.0 and -2.5), or Osteoporosis (T-score at or below -2.5). 10-year Fracture Risk: FRAX not reported because: Treated for osteoporosis Clinical Information Provided by Patient: Parent has had a hip fracture Is being treated for osteoporosis Has used the following medications: Fosamax (i.e. alendronate), Calcium Patient maximum height was 65 Menopause Age: 49 No regular weight bearing exercise Does not regularly consume dairy products Drinks caffeinated beverages Onset of menses at age 15 Impression: The patient has low bone mass, based on the Left Femoral Neck T-score. The patient has risk factors, including: parental hip fracture. Discussion: It is important to ask patients whether they are taking their medications and to encourage continued and appropriate compliance with their osteoporosis therapies to reduce fracture risk. It is also important to review their risk factors and encourage appropriate calcium and vitamin D intakes, exercise, fall prevention and other lifestyle measures. Follow-Up: Consider a repeat BMD and Vertebral Fracture Assessment (VFA) exam in 2 years or sooner if medically necessary, to reassess this patient's status. Reported by: LEANA on 07/24/2024 3:16:00 PM. Reviewed, dictated and finalized at location A.
== END 2024-07-24 14:57 | disposition home or self-care (01) ==
LOC: CHSIMG 14:56
PROVIDERS: PCP Family Medicine; Visit Provider Internal Medicine Endocrinology, Diabetes & Metabolism
DX: Z78.0 Asymptomatic menopausal state (principal); Z79.899 Other long term (current) drug therapy; M85.89 Other specified disorders of bone density and structure, multiple sites
CPT/HCPCS: 77080

== ENCOUNTER 2024-11-03 09:44 | Emergency (ER) | payer MEDICARE, SELFPAY ==
--- NOTE | ~2024-11-03 | XR_ITS ---
Clinical Indication: Cough PA and lateral views of the chest: Comparison: 06/15/2020 Findings: The lungs are clear, without evidence of focal consolidation or pleural effusion. Cardiome diastinal silhouette is within normal limits. Bones and soft tissues are unremarkable. Impression: Normal chest. Reviewed, dictated and finalized at [facility]. CTOR GENERAL Impression: Normal chest.
[2024-11-03 10:10] VITALS: BP 110/65; PULSE 110; RESP 18; TEMP 37.1; O2SAT 97
--- NOTE | 2024-11-03 10:34 | ED_ITS ---
HPI - URI/Sore Throat General Chief Complaint: Upper Respiratory Infection Stated Complaint: cough Time Seen by Provider: 11/03/24 10:34 Source: patient, RN notes reviewed and old records reviewed Mode of arrival: ambulatory Limitations: no limitations History of Present Illness HPI Narrative: [age] year presents to the [facility] with a cough that started Saturday, 3 days ago. Reports that it got worse yesterday. Intermittent productive cough. Denies chest pain. Has fevers. Shortness of breath Related Data Allergies Allergy/AdvReac Type Severity Reaction Status Date / Time No Known Allergies Allergy Verified 11/03/24 10:21 Review of Systems Review of Systems: All systems reviewed & are unremarkable except as noted in HPI and below Constitutional: Constitutional: Reports no additional constitutional comp laints ENT: Reports system reviewed and no additional complaints, except as documented Cardiovascular: Cardiovascular: Reports no additional cardiovascular complaints, Denies chest pain and Denies dyspnea Respiratory: Respiratory: Reports as per HPI, Denies chest congestion, Reports cough and Denies dyspnea Musculoskeletal: Musculoskeletal: Reports no additional musculoskeletal complaints Integumentary/Breasts: Skin/Breast: Reports system reviewed and no additional complaints, except as docu PMFSH Past Medical History Medical History Daytime somnolence Dysphagia High serum thyroid stimulating hormone (TSH) Fatigue Angina pectoris BMI 28.0-28.9,adult GERD (gastroesophageal reflux disease) Stiffness of left shoulder joint Osteoporosis screening Obstructive Sleep Apnea-Hypopnea Syndrome Vitamin D deficiency Anxiety Type 2 diabetes mellitus Hyperlipidemia Surgical History Surgical History History of cholecystectomy Family History Family History Sibling Diabetes mellitus Family history of cardiovascular disease Mother Diabetes mellitus Acute myocardial infarction Father Family history of lung cancer Social History Social History Smoking status: Never smoker Second hand tobacco smoke exposure: No Alcohol intake: current Drinks per week: 1 Alcohol use details: occasional Substance use: never Substance use type: does not use Lack of Transportation: No Lack of Food: Never True Current Housing: I Have Housing Concerned About Future Housing: No Difficulty Paying Gas/Electric Bills: No Difficulty Paying for Meds: No Currently Unemployed: No Education: High School Diploma/GED Difficulty w/ Childcare or Family Care: No Living arrangements: with family Occupation/Education: occupation Gender identity (if verbalized by the patient): Female Sexual Orientation (if Verbalized by the Patient): Straight or Heterosexual Spiritual care concerns: No Agree to blood products: Yes Comments At the time of my signature, I reviewed and agree with the nursing past medical, surgical, social, and family history. There is no relevant family history pertinent to the patient complaint. Exam Const: General: cooperative, healthy appearing, comfortable, no acute distress, well developed, alert and well nourished Nutritional Appearance: well nourished Orientation/consciousness: patient oriented x3 Limitations: no limitations HENMT: Head: normal to inspection Ears: hearing grossly normal bilaterally, external ears normal, TM's normal bilaterally, EAC's normal, mastoids normal and no periauricular adenopathy Mouth: Yes Normal oral and palatal mucosa present, Yes lip normal, Yes tongue normal and Yes moist mucous membranes Throat: posterior oropharynx normal, uvula midline and no uvular edema Eyes: General: appearance normal, both eyes and all related structures Alignment and Position: alignment normal Neck: Neck: normal visual inspection, full ROM, no lymphadenopathy and no meningeal signs Chest: Chest palpation & inspection: normal inspection of the chest Resp: Effort & Inspection: normal respiratory effort and able to speak in complete sentences Auscultation: no crackles, no rales, no rhonchi and wheezes expiratory wheezes (Mild) and throughout Cardio: Rate: regular rate Skin: General skin exam: normal color and no rashes or lesions noted Neuro: General: patient oriented x3, gait normal, moves all extremities and no meningeal signs Cognition (Neuro): normal cognition Speech: normal speech Gait exam (Neuro): Normal gait present Extrem: General: normal to inspection, full ROM, capillary refill normal and normal gait Psych: Appearance: grossly normal and well kempt Mental Status: mental status grossly normal Speech and movement: Normal speech and movement present and Clear speech present Affect: normal affect Attitude: cooperative Course Course Level of Care: Express Care Visit Vital Signs Vital signs: Vital Signs Temperature 98.7 F 11/03/24 10:10 Pulse Rate 110 H 11/03/24 10:10 Respiratory Rate 18 11/03/24 10:10 Blood Pressure 110/65 11/03/24 10:10 Pulse Oximetry 97 11/03/24 10:10 Oxygen Delivery Room Air 11/03/24 10:10 Temperature 98.7 F 11/03/24 10:10 Pulse Rate 110 H 11/03/24 10:10 Respiratory Rate 18 11/03/24 10:10 Blood Pressure 110/65 11/03/24 10:10 Pulse Oximetry 97 11/03/24 10:10 Oxygen Delivery Room Air 11/03/24 10:10 Reviewed MDM - URI/Sore Throat MDM Narrative Medical decision making narrative: Patient sitting in exam room. Nontoxic, vitals stable. Patient presents with 3 day history of a cough. Flu, COVID are negative. Chest x-ray showed no acute findings. Patient appropriate for outpatient treatment of bronchitis with close follow-up. Discharge instructions reviewed with patient, as well as provided in writing per nursing staff. The instructions also include specific and strict return/GO TO THE ER as well as f/u information. All questions have been answered, and the patient deny any further questions with discharge and discharge plan. Some parts of this dictation were generated by voice recognition software and may contain typographical and/or grammatical inaccuracies. Differential Diagnosis Differential diagnosis: Likely upper respiratory infection, sinusitis, viral infection, bronchitis and influenza Lab Data Labs: Lab Results 11/03/24 Range/Units 10:35 POC Influenza A Ag Negative (Negative) POC Influenza B Ag Negative (Negative) POC SARS CoV-2 Ag Negative (Negative) Reviewed Imaging Data Radiologist's impression: Clinical Indication: Cough PA and lateral views of the chest: Comparison: 06/15/2020 Findings: The lungs are clear, without evidence of focal consolidation or pleural effusion. Cardiomediastinal silhouette is within normal limits. Bones and soft tissues are unremarkable. Impression: Normal chest. Critical Care Time Critical Care Time Critical Care Time: No Discharge Plan Discharge Clinical Impression: Acute bronchitis Patient Disposition: Home, Self-Care Condition: Stable Instructions: Antibiotic Form, Acute Bronchitis (ED) Additional Instructions: Your chest x-ray did not show signs of pneumonia Your rapid COVID test were negative Your rapid flu test was negative Your symptoms are likely due to a viral illness, which is not treated with antibiotics. Typically viral infections last 7-10 days, can linger for couple of weeks. It is very important to treat your symptoms. Drink plenty of water, Gatorade, Pedialyte, ice pops or Jell-O. -Alternate Tylenol and Motrin per package directions for fever or pain. You can alternate every 4 hours -Antihistamine medication such as Zyrtec/Claritin/Maricarmen during the day can help improve symptoms. -doing daily nasal irrigations can help relieve pressure your sinuses. Things like a Neti pot -Use Flonase twice a day for 5 days then daily to help reduce the inflammation and dry up your sinuses. -You can also use Mucinex. Be sure to drink plenty of water with this medication at least 8 ounces with every dose and it is important to drink 8 to 10 glasses of water per day. Water is a natural decongestant -Eat and drink things that are easy to swallow, like tea or soup, or popsicles. -Oral rinses such as: Salt water gargles and/or may use topical anesthetic (eg. Chloraseptic spray) or lozenges to relieve dryness or throat pain). -Frequent hand washing or hand resource manager is one of the best ways to prevent spread of infection. -Using a vaporizer or humidifier at night will also help thin secretions and help with coughing up phlegm. -Follow up with primary care provider in 7-10 days if condition is not improving - For new or worsening symptoms go directly to the nearest ER Patient Language: Gibraltarian Prescriptions: New albuterol sulfate 90 mcg/actuation HFA aerosol inhaler 2 puff inhalation QID PRN (Reason: shortness of breath or wheezing) Qty: 6.7 0RF (DME) Aerochamber MV Spacer See Rx Instructions .Route Qty: 1 0RF Rx Instructions: As directed No Action (DME) blood-glucose meter Misc See Rx Instructions .Route Qty: 1 0RF Rx Instructions: check blood sugar daily (DME) lancets-blood glucose strips 30 gauge combo pack See Rx Instructions .Route Qty: 200 0RF Rx Instructions: check blood sugar daily (DME) Dexcom G7 Sensor Device See Rx Instructions .Route Qty: 9 3RF Rx Instructions: As directed (DME) Dexcom G7 Senior Billing Consultant Misc See Rx Instructions .Route Qty: 1 0RF Rx Instructions: As directed calcium carbonate-vitamin D3 600 mg-10 mcg (400 unit) tablet See Rx Instructions .ROUTE .COMPLEX Qty: 180 0RF Dose Instruction: TAKE 1 TABLET BY MOUTH TWICE DAILY WITH A MEAL Rx Instructions: TAKE 1 TABLET BY MOUTH TWICE DAILY WITH A MEAL Ozempic 1 mg/dose (4 mg/3 mL) pen injector 1 mg subcut WEEKLY Qty: 9 1RF sertraline 100 mg tablet 100 mg PO DAILY Qty: 90 2RF alendronate [Fosamax] 70 mg tablet 70 mg PO WEEKLY Qty: 12 3RF atorvastatin 40 mg tablet See Rx Instructions .ROUTE .COMPLEX Qty: 90 1RF Dose Instruction: TAKE 1 TABLET DAILY Rx Instructions: TAKE 1 TABLET DAILY cholecalciferol (vitamin D3) 1,250 mcg (50,000 unit) tablet 1,250 mcg PO WEEKLY Qty: 14 0RF Follow-up/Referrals: Arabella Escamilla MD [Primary Care Provider] - 2 Weeks Stand Alone Forms: Work/School Release IP Time of Disposition: 11:18
[2024-11-03 10:36] LABS: EDCOVIDSCREEN Negative (Negative); EDINFLUASCREEN Negative (Negative); EDINFLUBSCREEN Negative (Negative)
--- OUTSIDE RECORDS SUMMARY | 2024-11-03 10:37 | XMS_ITS | Data Portability ---
Author Organization [place] - [facility] OFFICE Address [address] [place] [address] Care Team Providers Care Ice Delivery Driver Name Role Phone TIFFANIE KELLEY Primary Care Provider Assessment No assessment recorded. Plan of Treatment Reminders Order Date Submit Date Provider Last Modified By Organization Details Last Modified Time Details Appointments None recorded. Lab None recorded. Referral None recorded. Procedures None recorded. Surgeries None recorded. Imaging electrocard iogram 2019 020 [email or web address] Not available 0 11:25:28 Medication Orders None recorded. Patient TargetsNo targets recorded. Patient Instructions Encounter Date Encounter Id Patient Instructions Last Modified By Organization Details Last Modified Time 07/18/2020 [id number] Exercise advised Low cholesterol diet advised Low sodium diet advised [email or web address] Not available 07/18/2020 15:14:06 Scribed by Magy Gloria [facility] [email or web address] Not available 07/18/2020 15:14:01 08/15/2020 [id number] Exercise advised Low cholesterol diet advised Low sodium diet advised Not available 08/15/2020 15:39:46 Scribed by Magy Gloria [facility] [email or web address] Not available 08/15/2020 15:39:30 Reason for Referral None Reported. Results Created Date Observation Date Name Description Value Unit Range Abnormal Flag Note LastModifiedBy Organization Detail LastModifiedTime 07/21/2007/18/2020 elect ana diogr am No observ ation record ed. [email or web address] Not Available 2019 16:40:32 07/30/20 20 07/26/2020 US, echoc ardio gram No observ ation record ed. [email or web address] Not Available 2019 13:19:10 08/24/20 20 08/02/2020 tread mill nucle ar stres s test (PROC ) No observ ation record ed. [email or web address] Not Available 2019 12:35:18 Result Notes None recorded. Problems Name Problem SNOMED Code Status Onset Date Resolution Date Notes Provider Name and Address Organization Details Recorded Time Atypical chest pain 951268000 Active 2019 [facility] null, [place] - [facility] 0 05:40:54 Hyperlipidemia 67714902 Active 2019 [facility] [place], [place] - [facility] 0 05:41:12 Type 2 diabetes mellitus without complication 223541526 Active 2019 [facility] [place], [place] - [facility] 0 05:41:19 Problem Notes None recorded. Procedures Surgical History None recorded. Imaging Results Imaging Date Name Status LastModified by Organization Details LastModified Time 07/18/2020 electrocardiogram completed Informa tion not available 07/21/2020 16:40:32 07/26/2020 US, echocardiogram completed Inform ation not available 07/30/2020 13:19:10 08/02/2020 treadmill nuclear stress test (PROC) completed Information not available 08/24/2020 12:35:18 Procedure Notes None recorded. Medical Equipment None Reported. Allergies No known drug allergies Medications Name Sig Start Date Stop Date Status Note LastModified by Organization Details LastModified Time metformin 500 mg tablet Take 1 tablet twice a day by oral route. active Not Available Not Available No t Available atorvastatin 20 mg tablet Take 1 tablet every day by oral route. active Not Available Not Available No t Available peg-electroly te solution 420 gram oral solution 08/15 completed one time use 08/15 rl Not Available Not Available Not Available glimepiride 2 mg tablet Take 1 tablet every day by oral route. active Not Available Not Available No t Available omeprazole 20 mg capsule,delay ed release active Not Available Not Available N ot Available sertraline 50 mg tablet Take 1 tablet every day by oral route. active Not Available Not Available No t Available ICaps AREDS2 QD active Not Available Not Available Not Available Vitals Date Recorded Body height Body mass index (BMI) Body weight Heart rate Oxygen saturation Oxygen saturation in Arterial blood by Pulse oximetry Systolic blood pressure Diastolic blood pressure Provider Name and Address Organization Details Last Updated DateTime 0 162.56 cm 28.2 kg/m2 07865.5 1 g 74 /min 97 % 97 % 100 mm[Hg] 70 mm[Hg] Roxie Soto [facility] 0 14:56:19 Date Recorded Body height Body mass index (BMI) Body weight Heart rate Oxygen saturation Oxygen saturation in Arterial blood by Pulse oximetry Systolic blood pressure Diastolic blood pressure Provider Name and Address Organization Details Last Updated DateTime 0 162.56 cm 28.6 kg/m2 55198.7 7 g 91 /min 97 % 97 % 120 mm[Hg] 80 mm[Hg] Magy Gloria [employer] 0 15:25:57 Social History Question Answer Notes LastModified by Organizat ion Details LastModified Time Tobacco Smoking Status [facility] 14:27:23 What Is Your Level Of Alcohol Consumption? Occasional [email or web address] Information not available 07/18/2020 What Is Your Level Of Caffeine Consumption? Occasional [email or web address] Information not available 07/18/2020 How Much Tobacco Do You Chew? None [email or web address] Information not available 07/18/2020 What Type Of Diet Are You Following? REGULAR [email or web address] Information not available 07/18/2020 Which Illicit Or Recreational Drugs Have You Used? None [email or web address] Information not available 07/18/2020 Do You Or Have You Ever Used E-cigarettes Or Vape? 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 With Others [email or web address] Information not available 07/18/2020 Marital Status [email or web address] Informatio n not available 07/18/2020 What Was The Date Of Your Most Recent Tobacco Screening? 07/18/2020 Information not available 08/14/2020 Do You Or Have You Ever Used Smokeless Tobacco? Never Used Smokeless Tobacco [email or web address] Information not available 07/18/2020 How Much Tobacco Do You Smoke? No Information not available 08/14/2020 General Stress Level Medium [email or web address] Information not available 07/18/2020 How Many Years Have You Smoked Tobacco? 0 01 Information not available 08/23/2020 Sex: Unknown Functional Status Question Answer Note LastModified by Organizat ion Details LastModified Time What is your exercise level? Occasional [email or web address] Information not available 07/18/2020 Mental Status None recorded. Family History Relationship Description Onset Age of this Age Resolved Age Notes LastModified by Organization Details LastModified Time Mother Sudden cardiac [email or web address] Not available 07/18 14:28:34 Medical History Condition Response Hyperlipidemia Y Sleep Apnea Y High Cholesterol Y Gynecological HistoryNo gynecological history recorded. Obstetrics History GPAL:G 0 P 0 0 0 0 Past Encounters Encounter ID Performer Location Encounter Start Date Encounter Closed Date Diagnosis/Indication Diagnosis SNOMED-CT Code Diagnosis ICD10 Code Diagnosis Note [id number] MD Juan Rosario Office [facility] [place] [address] 07/18/2020 14:24:01 07/18/2020 15:29:04 Atypical chest pain 130239977 R07.89 Treadmill Myoview Stress test, has high [place] Risk score. Has Known CAD, or CAD risk equivalent . To look for any ischemia. Obtain echo to evaluate for structural /functiona l disease Type 2 kassi betes mellitus without complication 052595309 E11.9 Treatment and evaluation by primary care doctor Discussed importance of adequate glycemic control to minimize cardiovasc ular disease progressio n, A1C goal of < 7% for type 2 DM. Hyperlipidemia 60343287 E78.5 Needs to keep LDL less than 100, and HDL more than 40.Continu e atorvastat in 20mgWill get fasting lipids for follow-up [id number] MD Juan Rosario Office [address] [place] [address] 08/15/2020 15:13:41 08/15/2020 16:07:12 Atypical chest pain 685215478 R07.89 TDM positive for inferior septal defect The patient will be scheduled for left heart catheteriz ation, with coronary angiogram, and possible PTCA/Stent . The procedure was discussed with the patient, and risks, benefits, and alternativ e options were explained. The patient was given informatio n about heart catheteriz ation and interventi onal procedures . The patient agrees to proceed. Type 2 kassi betes mellitus without complication 474939141 E11.9 Treatment and evaluation by primary care doctor Discussed importance of adequate glycemic control to minimize cardiovasc ular disease progressio n, A1C goal of < 7% for type 2 DM. Hyperlipidemia 96423481 E78.5 Needs to keep LDL less than 100, and HDL more than 40.Continu e atorvastat in 20mgWill get fasting lipids for follow-up Health Concerns Section Related Observation LastModified by Organization Detai ls LastModified Time None Recorded Concern Status LastModified by Organization Details LastModified Time None Recorded Advance Directives Directive None Recorded Payers Encounter Date Sequence Insurance Name Policy Number Policy Simons Covered Member ID Simons Member ID Guarantor Name 07/18/2020 1 [place] [id number] Claudette Mas [id number] Claudette Mas 08/15/2020 1 [place] [id number] Claudette Mas [id number] Claudette Mas Notes Date Note Type Note Provider Name and Address Organization Details Recorded Time 07/18/2020 text/html 07/18/2020 CC: New Consult 65 year old female with PMH sleep apnea, diabetes high cholesterol, and family history of NM presents for cardiac consultation following presenting to [place] [facility] for chest pain. She presented to [place] ER with intense chest squeezing that resulted within about an hour. It was accompanied by diaphoresis and back pain. She also endorses lightheadedness with position changes which has been occurring intermittently for the past few weeks. No shortness of breath at rest. No dyspnea on exertion. No orthopnea. No PND's. No dizziness. No palpitation. No syncope or near syncope. No leg swelling. No nausea and vomiting. No side effects from medications. She does not exercise regularly but is active working part-time. No prior echo, stress test, or left heart catheterization per patient. She reports she was seen about 3 years ago for chest pain as well. She was diagnosed with anxiety and started on sertraline. She reports she was under high stress for a job which she is no longer doing. Results from this visit, or from the past: 07/18/20 EKG: Juan Carreno MD [address] [place], [address], [facility] 07/18/2020 15:29:02 08/15/2020 text/html 08/15/2020 CC: chest pain 65 year old female with PMH sleep apnea, diabetes high cholesterol, and family history of NM presents for follow up. She was last seen in clinic 1 month ago on 07/18/2020 for ER follow up. Had stress test on 08/02/2020 revealing inferior septal defect. She has had occasional left sided chest pain following her stress test. She still has some dyspnea on exertion as well. She presented to [place] ER with intense chest squeezing that resulted within about an hour. It was accompanied by diaphoresis and back pain. She also endorses lightheadedness with position changes which has been occurring intermittently for the past few weeks. No shortness of breath at rest. No dyspnea on exertion. No orthopnea. No PND's. No dizziness. No palpitation. No syncope or near syncope. No leg swelling. No nausea and vomiting. No side effects from medications. She does not exercise regularly but is active working part-time. No prior echo, stress test, or left heart catheterization per patient. She reports she was seen about 3 years ago for chest pain as well. She was diagnosed with anxiety and started on sertraline. She reports she was under high stress for a job which she is no longer doing. ECHO 07/26/20:LV chamber size is normal,LV systolic function is normal.there is normal global systolic function and contractillity,the estimated LVEF is 60-65%,there is a trileaflet aortic valve,the mitral valve is structuraly normal,there is minimal mitral regurgitation,there is trace tricuspid regurgitation,there is no pericardial effusion present. Results from this visit, or from the past: 07/18/20 EKG: Atrial rhythm. Low voltage limb leads. Inferior infarct age undetermined. Left axis secondary to infarct. Consider anterior fascicular block. Negative T waves - possible inferior ischemia ECHO 07/26/20:LV chamber size is normal,LV systolic function is normal.there is normal global systolic function and contractillity,the estimated LVEF is 60-65%,there is a trileaflet aortic valve,the mitral valve is structuraly normal,there is minimal mitral regurgitation,there is trace tricuspid regurgitation,there is no pericardial effusion present. Juan Carreno MD [address] [place], [address], [facility] 08/15/2020 16:07:09 OBGyn Episode No OBEpisode recorded.
--- OUTSIDE RECORDS SUMMARY | 2024-11-03 10:37 | XMS_ITS | Data Portability ---
Author Organization [facility] [place] Address [address] [place] [address] [place] [address] Assessment Encounter Date Assessment Date Assessment LastModified by Organization Details LastModified Time 07/03/2022 07/03/2022 Annual gynecological exam performed. Patient will come back in a year unless there are new symptoms. [facility] Not available 07/03/2022 16:00:54 Plan of Treatment Reminders Order Date Submit Date Provider Last Modified By Organization Details Last Modified Time Details Appointments None recorded. Lab None recorded. Referral None recorded. Procedures None recorded. Surgeries None recorded. Imaging MAMMO, screening, bilateral [address] [facility], [address], [address], [place], [address], 17:33:43 Medication Orders nystatin-t riamcinolo ne 100,000 unit/gram- 0.1 % topical ointment 2021 [id number], [address] [facility], [place], [place], [id number], 16:14:38 Patient TargetsNo targets recorded. Patient InstructionsNo instructions recorded. Reason for Referral None Reported. Results Created Date Observation Date Name Description Value Unit Range Abnormal Flag Note LastModifiedBy Organization Detail LastModifiedTime 07/03/2007/03/2022 IMAGE GUIDE D PAP AND HPV REGAR DLESS image guided Pap, HPV regardless of Pap result SEE RESULT S BELOW CASE REPOR T: Cytol ogy Gynec ologi nagi Repor t Case: [id number] Autho stacey coleman Provi nate: Azar dumont , Mono Ko Luna cted: 07/03 1637 LUMBER TAILER Order ing Locat ion: [place] [facility] logriddhi Recei verito: 07/04 0743 First Scree n: Roxie Bird , CT Speci men: Mark go Pap - Image d, Cervi x STATE MENT OF ADEQU ACY: Satis facto ry for evalu ation Trans forma tion zone compo nent canno t be defin itive ly ident ified due to the prese nce of atrop hy or other hormo nal jacobs es FINAL DIAGN OSIS: Negat teresa for Intra epith elial Lesio n or Emely villafuerte (NIL) . Atrop hic cell camelia terry. Elect ajit barger d by Roxie Bird , JUSTUS on 07/09 at 8:05 AM ----- ----- ----- ----- ----- ----- ----- ----- ----- ----- ----- ----- ----- ----- ----- ----- ----- ---- HPV RESUL TS: HPV mRNA E6/E7 : No HPV mRNA Detec eric NOTE: This high risk HPV mRNA assay detec ts fourt een high- risk HPV types (16, 18, 31, 33, 35, 39, 45, 51, 52, 56, 58, 59, 66, 68) witho ut diffe renti ation . COMME NT: Note: This speci men was revie wed by a Cytot echno logis t and/o r Patho logis t (as indic ated in this repor t) after evalu ation using the Thinp rep Imagi ng Syste m. CLINI NAGI INFOR MATIO N: Menst rual Statu s: LMP (if appli cable ): Clini nagi Histo ry/Pr eviou s Pap: Type of Neopl christos (if appli cable ): Signi fican t Clini nagi Findi ngs: Other Histo ry: Hormo cam (if appli cable ): PAP EDUCA TACO L NOTE: The Pap Test is a scree donavan test with an inher ent false negat teresa rate. Liqui d-bas ed sampl ing may decre ase, but will not elimi aishwarya, false negat teresa resul ts. A negat teresa resul t does not precl ude the prese nce and/o r devel opmen t of disea se, since the prese nce of abnor mal cells in the sampl e depen ds on the locat ion of the lesio n and sampl ing techn ique. Barbara nued regul ar scree donavan is the best metho d of cance r preve ntion . If repor eric cytol ogic findi ng do not corre late with physi nagi and/o r histo rical findi ngs, furth er inves tigat ion is recom calvin d, as clini gabrielle gaviria nted. Not Available [facility] [address] [place], [address], 07/09/2022 09:08:10 Result Notes None recorded. Procedures Surgical History Date Name Laterality Status Provider Name and Address Organization Details Recorded Time Colonoscopy completed [facility] 07/02/2022 21:37:56 Breast Implants completed [facility] 07/02/2022 21:38:06 Imaging Results None recorded. Procedure Notes None recorded. Medical Equipment None Reported. Allergies No known drug allergies Medications Name Sig Start Date Stop Date Status Note LastModified by Organization Details LastModified Time amoxicillin 500 mg capsule TAKE ONE CAPSULE BY MOUTH EVERY 8 HOURS 07/03 completed Not Available Not Available Not Available atorvastati n 20 mg tablet active Not Available Not Available Not Available ibuprofen 800 mg tablet TAKE 1 TABLET BY MOUTH EVERY 8 HOURS UNTIL ALL TAKEN active Not Available Not Available No t Available alendronate 70 mg tablet TAKE 1 TABLET BY MOUTH WEEKLY active Not Available Not Available No t Available sertraline 100 mg tablet TAKE 1 TABLET BY MOUTH DAILY active Not Available Not Available No t Available metronidazo le 250 mg tablet TAKE 1 TABLET BY MOUTH EVERY 8 HOURS UNTIL ALL TAKEN 07/03 completed Not Available Not Available Not Available acetaminoph en 300 mg-codeine 30 mg tablet TAKE 1 TABLET BY MOUTH EVERY 4-6 HOURS NEEDED FOR PAIN 07/03 completed Not Available Not Available Not Available glimepiride 2 mg tablet active Not Available Not Available Not Available nystatin-tr iamcinolone 100,000 unit/gram-0 .1 % topical ointment APPLY TOPICALLY TO THE AFFECTED AREA TWICE DAILY NEEDED FOR VULVAR IRRITATIO N active Not Available Not Available No t Available methylpredn isolone 4 mg tablets in a dose pack FOLLOW PACKAGE DIRECTION S 07/03 completed Not Available Not Available Not Available metformin ER 500 mg tablet,exte nded release 24 hr active Not Available Not Available Not Available sertraline 50 mg tablet 07/03 completed Not Available Not Available Not Available amoxicillin 875 mg-potassiu m clavulanate 125 mg tablet TAKE 1 TABLET BY MOUTH TWICE DAILY FOR 10 DAYS 07/03 completed Not Available Not Available Not Available chlorhexidi ne gluconate 0.12 % mouthwash RINSE WITH 1/2 OZ FOR 30 SECONDS TWICE DAILY. AVOID EATING OR DRINKING FOR 30 MINUTES AFTER USING 07/03 completed Not Available Not Available Not Available OneTouch Verio test strips CHECK BLOOD SUGAR DAILY active Not Available Not Available No t Available OneTouch Delica Plus Lancet 30 gauge CHECK ONCE DAILY active Not Available Not Available No t Available OneTouch Verio Reflect Meter CHECK ONCE DAILY active Not Available Not Available No t Available Vitals Date Recorded Body height Body mass index (BMI) Body weight Provider Name and Address Organization Details Last Updated DateTime 07/03/2022 162.56 cm 29 kg/m2 51765.11 g Nereida Nieto [facility] 07/03/2022 16:02:11 Date Recorded Systolic blood pressure Diastolic blood pressure Provider Name and Address Organization Details Last Updated DateTime 07/03/2022 122 mm[Hg] 78 mm[Hg] Micheline Montoya Ю[facility]ИЯ- [address], [place], [address], [facility] 07/03/2022 16:06:30 Social History Question Answer Notes LastModified by Organizat ion Details LastModified Time Tobacco Smoking Status Former Smoker Nereida Nieto [facility] 07/03/2022 16:04:08 What Is Your Level Of Alcohol Consumption? Occasional Information not available 07/03/2022 Are You Blind Or Do You Have Difficulty Seeing? No Information not available 07/03/2022 What Is Your Level Of Caffeine Consumption? Occasional Information not available 07/03/2022 In The 14 Days Before Symptom Onset, Have You Had Close Contact With A Laboratory-confir med COVID-19 While That Case Was Ill? No Information not available 07/03/2022 In The 14 Days Before Symptom Onset, Have You Had Close Contact With A Person Who Is Under Investigation For COVID-19 While That Person Was Ill? No Information not available 07/03/2022 Have You Been To An Area Known To Be High Risk For COVID-19? No Information not available 07/03/2022 Are You Deaf Or Do You Have Serious Difficulty Hearing? No Information not available 07/03/2022 What Type Of Diet Are You Following? REGULAR Information not available 07/03/2022 What Is The Highest Grade Or Level Of School You Have Completed Or The Highest Degree You Have Received? 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 No Information not available 07/03/2022 Do You Use Protection During Sex? No Information not available 07/03/2022 Do You Use Your Seat Belt Or Car Seat Routinely? Yes Information not available 07/03/2022 Do You Have Smoke And Carbon Monoxide Detectors In Your Home? Yes Information not available 07/03/2022 How Much Tobacco Do You Smoke? No Information not available 07/03/2022 Do You Use Any Illicit Or Recreational Drugs? No Information not available 07/03/2022 Do You Use Sunscreen Routinely? No Information not available 07/03/2022 Have You Used IV Drugs? No Information not available 07/03/2022 Sex: Unknown Functional Status Question Answer Note LastModified by Organizat ion Details LastModified Time Do you have difficulty walking or climbing stairs? No Information not available 07/03/2022 Are you able to walk? YESWOREST Information not available 07/03/2022 Are you able to care for yourself? Yes Information not available 07/03/2022 Do you have difficulty dressing or bathing? No Information not available 07/03/2022 What is your exercise level? Moderate Information not available 07/03/2022 Mental Status None recorded. Family History Relationship Description Onset Age of this Age Resolved Age Notes LastModified by Organization Details LastModified Time Unspecified Relation Heart disease Not available 2021 16:02:22 Mother Heart disease Not available 2021 16:02:22 Sister Heart disease Not available 2021 16:02:22 Medical History Condition Response Diabetes Y Acid Reflux (GERD) Y Gynecological History Statement/Question Response Abnormal Pap N Date of Last Mammogram N Was last menstrual period normal Y STIs/STDs N HPV Vaccine N Current Control Method Menopause Age at First Child 21 If Post Menopausal, Age at Menopause 49 Sexually Active? N Menses Monthly N Date of DEXA bone scan 07/03/2022 Age of first menstrual cycle 15 Date of Last Pap Smear Sexual Problems? N LMP Unknown Y Obstetrics History GPAL:G 2 P 0 0 0 2 Type Value Living 2 Total 2 Past Encounters Encounter ID Performer Location Encounter Start Date Encounter Closed Date Diagnosis/Indication Diagnosis SNOMED-CT Code Diagnosis ICD10 Code Diagnosis Note [id number] [facility] [address] [address] 07/03/2022 15:46:30 07/03/2022 16:26:16 Gynecologic examination 89059585 Z01.419 Take Calcium with Vitamin D 12-1500mg daily. Do monthly self breast exams. It is advised to get annual flu shot in the fall and she could obtain at [facility] or [facility] take care clinic. If you haven't received the Tdap vaccine in the last 10 years you should obtain one as well. Have mammogram yearly, bone density every 2-3 years and colonoscop y every 5-10 years depending on findings and history. Engage in daily exercise of low impact aerobic exercise 45-60 minutes 4-5 times weekly. Avoid tobacco and illicit drugs as well as using moderation with alcohol intake less than 1-2 8 oz beverages daily. This lifestyle behavior pattern will lead to less health conditions and longer life span. If BMI greater than 25 weight watchers or dietary consult advised. Questions have been answered. Patient appears to understand instructio ns, but if you have any further questions call or respond to this email Pap/hpv sent (no pap/hpv since 2015. Normal Hx) If this is wnl consider d/c pap/hpv testing moving forward unless otherwise indicated. STD Screen declinedGe netic Screen discussedC olon Screen PCPDexa Screen PCPRoutine Labs PCPMammo ordered Screening mammography 24 372296 Z12.31 Vulval irritation 415165 003 N90.89 occasional irritation May use PRNCome back if issues do not resolve or worsenExam wnl today Health Concerns Section Related Observation LastModified by Organization Detai ls LastModified Time None Recorded Concern Status LastModified by Organization Details LastModified Time None Recorded Advance Directives Directive None Recorded Payers Encounter Date Sequence Insurance Name Policy Number Policy Simons Covered Member ID Simons Member ID Guarantor Name 07/03/2022 1 [place] [id number] Claudette Mas [id number] Claudette Mas Notes Date Note Type Note Provider Name and Address Organization Details Recorded Time 07/03/2022 text/html Annual Technical Business Analyst Post-MenopausalRe ported bypatient.Menopau alvin Symptoms:no menopausal symptoms; normal vaginal lubrication Vaginal Bleeding:history of menopause having occurred; no history of post menopausal bleeding Urinary Symptoms:no hematuria; no incontinence; no nocturia; no urinary frequency Vulva:no genital lesion; no vulvar atrophy Vagina:normal vaginal discharge; no vaginal atrophy Breast:no breast lump; no nipple discharge; no breast pain Sexual Complaints:no sexual complaints Psychological Symptoms:no depression; no anxiety Preventive Measures:encourag e regular mammograms starting age 40; encourage self breast examination; encourage regular exercise; encourage no tobacco use; needs to schedule mammogram; history of recent colonoscopy Micheline Montoya, [facility] [address], [place], [address], [facility] 07/03/2022 16:17:15 OBGyn Episode Ob Episode Information Episode Created Date Number of Fetuses Patient Bloodtype Patient rh Status Prepregnancy Weight lbs Domestic Partner Domestic Partner Phone Father Name Sustainability Director Status 07/02/20 22 1 CLOSED Fetus Data First Name Last Name Admitted to NICU Weight (g) Sex Living Outcome Pediatric Complications Fetus ID Race Codes Race Delivery Type [id number] Vaginal Delivery Issa Calculation Initial Issa Date Initial Exam Date Initial Exam Provider Initial Ultrasound Date Last Menstrual Period Date Ultra Sound Weeks Gestation 0 Eighteen To Twenty Week Issa Update Ultra Sound Date Fundal Height At Umbil Quickening Date Ultra Sound Latest Weeks Gestation Final Issa Confirmed By Final Issa Confirmed Date Final Issa Date Ultra Sound Latest Days Gestation 0 0 Menstrual History Last Menstrual Date Menses Monthly On Bcp Conception Prior Menses Frequency Hcg Plus Date Menarche Onset Age Delivery Information Delivery Date Delivery Type Labor Anesthesia Weeks Gestation Incision Type Labor Labor Length Hrs Delivered By Post Complications Tubal Sterilization Discharge Date Comments 6 Discharge Information Feeding Method Contraceptive Method Maternal HG B and HCT Levels Ob Episode Information Episode Created Date Number of Fetuses Patient Bloodtype Patient rh Status Prepregnancy Weight lbs Domestic Partner Domestic Partner Phone Father Name Sustainability Director Status 07/02/20 22 1 CLOSED Fetus Data First Name Last Name Admitted to NICU Weight (g) Sex Living Outcome Pediatric Complications Fetus ID Race Codes Race Delivery Type F [id number] Vaginal Delivery Issa Calculation Initial Issa Date Initial Exam Date Initial Exam Provider Initial Ultrasound Date Last Menstrual Period Date Ultra Sound Weeks Gestation 0 Eighteen To Twenty Week Issa Update Ultra Sound Date Fundal Height At Umbil Quickening Date Ultra Sound Latest Weeks Gestation Final Issa Confirmed By Final Issa Confirmed Date Final Issa Date Ultra Sound Latest Days Gestation 0 0 Menstrual History Last Menstrual Date Menses Monthly On Bcp Conception Prior Menses Frequency Hcg Plus Date Menarche Onset Age Delivery Information Delivery Date Delivery Type Labor Anesthesia Weeks Gestation Incision Type Labor Labor Length Hrs Delivered By Post Complications Tubal Sterilization Discharge Date Comments 2 Discharge Information Feeding Method Contraceptive Method Maternal HG B and HCT Levels
== END 2024-11-03 11:22 | disposition home or self-care (01) ==
PROVIDERS: Emergency Provider Nurse Practitioner; PCP Family Medicine
DX: J20.9 Acute bronchitis, unspecified (principal); Z20.822 Contact with and (suspected) exposure to COVID-19; E11.9 Type 2 diabetes mellitus without complications; Z79.85 Long-term (current) use of injectable non-insulin antidiabetic drugs; I20.9 Angina pectoris, unspecified; K21.9 Gastro-esophageal reflux disease without esophagitis; E78.5 Hyperlipidemia, unspecified; F41.9 Anxiety disorder, unspecified; E66.9 Obesity, unspecified
CPT/HCPCS: 71046; 87426; 87804; 99213; G0463

== ENCOUNTER 2025-07-27 13:45 | Outpatient (CLI) | payer MEDICARE, SELFPAY ==
--- NOTE | ~2025-07-27 | DEXA_ITS ---
Bone Density Report Name: ZAIDA SLATER Age: 70 Sex: Female Ethnicity: White Date of : 1955 Indication: osteopenia; monitoring treatment; parental hip fracture; secondary osteoporosis; Referring Provider: Susannah Bazzi Study: Bone densitometry was performed. Exam Date: July 27, 2025 Accession number: [id number] Bone Density: Region BMD T-score Z-score Classification AP Spine(L1, L2, L4) 0.777 -2.3 -0.3 Osteopenia Femoral Neck (Left) 0.623 -2.0 -0.3 Osteopenia Total Hip (Left) 0.738 -1.7 -0.2 Osteopenia Femoral Neck (Right) 0.653 -1.8 0.0 Osteopenia Total Hip (Right) 0.828 -0.9 0.5 Normal Total Hip Mean 0.783 -1.3 0.2 Osteopenia World Health Organization criteria for BMD impression classify patients as: Normal (T-score at or above -1.0), Osteopenia (T-score between -1.0 and -2.5), or Osteoporosis (T-score at or below -2.5). 10-year Fracture Risk: FRAX not reported because: Treated for osteoporosis Previous Exams: -- Region Exam Age BMD T-score BMD Change BMD Change Date g/cm2 vs Baseline vs Previous -- AP Spine (L1-L2,L4) 07/27/2025 70 0.777 -2.3 -6.6%# -9.0%* 07/24/2024 69 0.854 -1.6 2.7%# 12.5%# 07/03/2022 67 0.758 -2.5 -8.8%* -8.8%* 10/13/2008 53 0.831 -1.8 Total Hip(Left) 07/27/2025 70 0.738 -1.7 -4.3%# 0.3% 07/24/2024 69 0.736 -1.7 -4.6%# 1.7%# 07/03/2022 67 0.724 -1.8 -6.2%* -6.2%* 10/13/2008 53 0.771 -1.4 Total Hip(Right) 07/27/2025 70 0.828 -0.9 4.4%# 0.0% 07/24/2024 69 0.828 -0.9 4.4%# 7.8%# 07/03/2022 67 0.768 -1.4 -3.1% -3.1% 10/13/2008 53 0.793 -1.2 -- *Denotes significance at 95% confidence level, LSC for AP Spine = 0.022 g/cm2, LSC for Total Hip = 0.027 g/cm2 Rate of change results reflect vertebral levels common to all scans # Denotes dissimilar scan types or analysis methods Clinical Information Provided by Patient: Parent has had a hip fracture Has secondary osteoporosis Is being treated for osteoporosis Has used the following medications: Actonel (i.e. risedronate), Vitamin D, Calcium Has the following medical conditions: type 2 DM Patient maximum height was 64 Menopause Age: 51 No regular weight bearing exercise Does not regularly consume dairy products Drinks caffeinated beverages Onset of menses at age 15 Number of children 2 Impression: The patient has low bone mass, based on the Total Spine T-score. The patient has risk factors, including: parental hip fracture. The BMD for the AP Spine (L1-L2,L4) decreased, changing by -9.0% since the last DXA exam. Discussion: SIGNIFICANT BONE LOSS OBSERVED. Adherence to therapy (including calcium and vitamin D intake) should be assessed. If compliance is not a factor, review management and exclusion of secondary causes of bone loss. It is important to ask patients whether they are taking their medications and to encourage continued and appropriate compliance with their osteoporosis therapies to reduce fracture risk. It is also important to review their risk factors and encourage appropriate calcium and vitamin D intakes, exercise, fall prevention and other lifestyle measures. Follow-Up: Consider a repeat BMD and Vertebral Fracture Assessment (VFA) exam in 2 years or sooner if medically necessary, to reassess this patient's status. Reported by: NUNO on 07/27/2025 2:08:00 PM. Reviewed, dictated and finalized at location A.
== END 2025-07-27 13:46 | disposition home or self-care (01) ==
LOC: MICIMG 13:46
PROVIDERS: PCP Internal Medicine Endocrinology, Diabetes & Metabolism; Visit Provider Internal Medicine Endocrinology, Diabetes & Metabolism
DX: M81.0 Age-related osteoporosis without current pathological fracture (principal); M85.89 Other specified disorders of bone density and structure, multiple sites
CPT/HCPCS: 77080